=== PATIENT | female | born 1965 | race Caucasian/White ===

== ENCOUNTER → 2017-05-25 | Outpatient (REF) | payer OTHER | LOC: M LAB REF 12:24 | PROVIDERS: ATTEND Physician Assistant Medical | DX: J02.9 Acute pharyngitis, unspecified (principal) ==

== ENCOUNTER → 2018-12-08 | Outpatient (CLI) | payer OTHER ==
--- NOTE | 2018-12-08 15:30 | REP ---
Chest two views HISTORY: Back pain Comparison: None The lungs are clear. The heart is normal in size. The pulmonary vasculature is normal in appearance. The bony structure is intact. IMPRESSION: No acute disease. Electronically Signed by Rashid Toth MD 12/08/2018 03:22 P
== END ==
LOC: M WUC 13:39
PROVIDERS: ATTEND Physician Assistant
DX: M54.9 Dorsalgia, unspecified (principal)

== ENCOUNTER → 2019-08-23 | Outpatient (REF) | payer OTHER | LOC: M LAB REF 19:35 | PROVIDERS: ATTEND Ophthalmology | DX: L72.0 Epidermal cyst (principal); H11.442 Conjunctival cysts, left eye ==

== ENCOUNTER 2023-03-21 11:29 | Emergency (ER) | payer OTHER, SELFPAY ==
[~2023-03-21] VITALS: Ht 154.9 cm; Wt 68.2 kg
[2023-03-21] MEDS ORDERED: IBUP200C25 PO (12:02)
[2023-03-21] MEDS ORDERED: DIPH50CA PO (12:02)
[2023-03-21] MEDS ORDERED: OMEG10002 PO (12:02)
[2023-03-21] MEDS ORDERED: NORCO, ANEXSIA 5/325MG TABLET (HYDROcodone/ACETAMINOPHEN) PO ONE (14:05)
[2023-03-21] MEDS ORDERED: ONDANSETRON 4MG ORAL DISINTEGRATING TAB PO ONE (14:05)
[2023-03-21] MEDS ORDERED: ASPI81TA26 PO (16:14)
[2023-03-21] MEDS ORDERED: HYDR-3713 PO (16:14)
[2023-03-21 16:25] VITALS: BP 132/71
== END 2023-03-21 16:43 | disposition home or self-care (01) ==
LOC: M ED 11:29
DX: S82.122A Displaced fracture of lateral condyle of left tibia, initial encounter for closed fracture (principal); W01.198A Fall on same level from slipping, tripping and stumbling with subsequent striking against other object, initial encounter; Y92.009 Unspecified place in unspecified non-institutional (private) residence as the place of occurrence of the external cause; Y93.01 Activity, walking, marching and hiking; Y99.8 Other external cause status; Z88.2 Allergy status to sulfonamides; Z79.899 Other long term (current) drug therapy

== ENCOUNTER → 2023-05-27 | Outpatient (CLI) | payer SELFPAY ==
[~2023-05-27] MED LIST: ASPI81TA26 PO; DIPH50CA PO; HYDR-3713 PO; IBUP200C25 PO; OMEG10002 PO
== END ==
LOC: M SOG 09:48
PROVIDERS: ATTEND Orthopaedic Surgery
DX: S82.122D Displaced fracture of lateral condyle of left tibia, subsequent encounter for closed fracture with routine healing (principal); W18.30XD Fall on same level, unspecified, subsequent encounter

== ENCOUNTER → 2024-03-03 | Outpatient (REF) | LOC: M EMP 09:48 → M LAB 09:48 | PROVIDERS: ATTEND Family Medicine | DX: Z00.00 Encounter for general adult medical examination without abnormal findings (principal) ==